=== PATIENT | male | born 1965 | race Caucasian/White ===

== ENCOUNTER 2017-12-30 23:59 | Emergency (ER) | payer OTHER ==
[~2017-12-30] VITALS: Ht 185.4 cm; Wt 137.9 kg
[2017-12-31] MEDS ORDERED: ULTRAM50 MG PO ×2 (01:54→02:01)
[2017-12-31] MEDS ORDERED: MOTRIN600 MG PO (01:55)
[2017-12-31 02:52] VITALS: BP 157/96
== END 2017-12-31 02:53 | disposition home or self-care (01) ==
LOC: EME 23:59
DX: K02.9 Dental caries, unspecified (principal)
CPT/HCPCS: 99281; 99284